=== PATIENT | female | born 1960 | race Caucasian/White ===

== ENCOUNTER → 2016-04-13 | Outpatient (CLI) | payer MEDICARE | END | disposition home or self-care (01) | LOC: CDC 15:22 | DX: Z01.810 Encounter for preprocedural cardiovascular examination (principal); G56.02 Carpal tunnel syndrome, left upper limb; M79.645 Pain in left finger(s); M79.642 Pain in left hand; Z88.0 Allergy status to penicillin | CPT/HCPCS: 93000 ==